=== PATIENT | male | born 1955 | race Caucasian/White ===

== ENCOUNTER 2016-02-22 10:09 | Outpatient (RCR) | payer OTHER | END 2016-05-22 | LOC: WSOH | DX: S39.011A Strain of muscle, fascia and tendon of abdomen, initial encounter (principal) ==

== ENCOUNTER 2016-10-24 08:47 | Day surgery (SDC) | payer OTHER ==
[~2016-10-24] VITALS: Ht 180.3 cm; Wt 88.2 kg
[2016-10-24 09:03] VITALS: BP 148/86; PULSE 79; TEMP 97.7
[2016-10-24] MEDS ORDERED: ZESTRIL 20MG TA20 MG PO (09:21)
[2016-10-24] MEDS ORDERED: LIPITOR20 MG PO (09:22)
[2016-10-24] MEDS ORDERED: NIZORAL SHAMPO120 M1 TP (09:22)
[2016-10-24 10:30] VITALS: BP 126/67; PULSE 75; TEMP 98.6
[2016-10-24 10:45] VITALS: BP 106/61; PULSE 62
[2016-10-24 11:00] VITALS: BP 116/70; PULSE 60
[2016-10-24 11:15] VITALS: BP 116/72; PULSE 59
[2016-10-24] MEDS ORDERED: LEVSIN0.125 M1 PO (11:17)
[2016-10-24 11:30] VITALS: BP 106/62; PULSE 60
== END 2016-10-24 12:00 | disposition home or self-care (01) ==
LOC: SDCO 08:47
DX: Z86.010 Personal history of colon polyps (principal); D12.5 Benign neoplasm of sigmoid colon; D12.2 Benign neoplasm of ascending colon; D12.3 Benign neoplasm of transverse colon; D12.4 Benign neoplasm of descending colon; I10 Essential (primary) hypertension; E78.5 Hyperlipidemia, unspecified; K57.30 Diverticulosis of large intestine without perforation or abscess without bleeding; K64.0 First degree hemorrhoids
CPT/HCPCS: OP; J2250; J2405; J3010; J7030